=== PATIENT | female | born 1980 | race Two or more races ===

== ENCOUNTER 2020-09-17 05:43 | Emergency (ER) | payer OTHER ==
[~2020-09-17] VITALS: Ht 160 cm; Wt 63.5 kg
[2020-09-17] MEDS ORDERED: KETO10TA2 PO (06:51)
[2020-09-17] MEDS ORDERED: CEFADROXIL500 MG PO (06:51)
== END 2020-09-17 06:53 | disposition home or self-care (01) ==
LOC: ER 05:43
DX: N61.0 Mastitis without abscess (principal)